=== PATIENT | female | born 1975 | race African-American/Black ===

== ENCOUNTER 2024-01-29 11:25 | Emergency (ER) | payer OTHER ==
[2024-01-29 11:38] VITALS: TEMP 98.3; BMI 33.3
[2024-01-29] MEDS ORDERED: KETOROLAC TROMETHAMINE 30 MG/1 ML VIAL ONE (13:12)
[2024-01-29] MEDS: KETOROLAC TROMETHAMINE 30 MG/1 ML VIAL IM ONE (13:23)
[2024-01-29 14:24] VITALS: BP 131/88; PULSE 98; RESP 18
== END 2024-01-29 14:20 | disposition home or self-care (01) ==
LOC: JER 11:25
PROC: 3E0233Z Introduction of Anti-inflammatory into Muscle, Percutaneous Approach (ICD-10-PCS; principal; 2024-01-29)
PROC: 3E023GC Introduction of Other Therapeutic Substance into Muscle, Percutaneous Approach (ICD-10-PCS; 2024-01-29)
DX: M54.50 Low back pain, unspecified (principal); R00.0 Tachycardia, unspecified; M62.830 Muscle spasm of back
CPT/HCPCS: 99284-25